=== PATIENT | female | born 1955 | race Caucasian/White ===

== ENCOUNTER → 2016-06-11 | Outpatient (CLI) | payer BC, OTHER ==
[2016-06-11 09:01] LABS: HEMATOCRIT 43.1 % (37.0-47.0); HEMOGLOBIN 14.8 g/dL (12.0-16.0); MEAN CORPUSCULAR HEMOGLOBIN 31.1 PG (27-31); MEAN CORPUSCULAR HGB CONC 34.3 g/dL (33-37); MEAN PLATELET VOLUME 10.9 FL (7.4-12.2); RDW COEFFICIENT OF VARIATION 13.6 % (11.5-14.5); RED BLOOD COUNT 4.76 10^6/uL (4.20-5.40); WHITE BLOOD COUNT 5.91 10^3/uL (4.8-10.8)
[2016-06-11 09:39] LABS: ASPARTATE AMINO TRANSFERASE 38 IU/L (8-39); BILIRUBIN,TOTAL 0.6 mg/dL (0.3-1.2); BLOOD UREA NITROGEN 20 mg/dL (7-22); BUN/CREATININE RATIO 28.57 (6-20); CALCIUM 9.7 mg/dL (8.7-10.7); CHLORIDE 103 meq/L (98-112); CREATININE 0.7 mg/dL (0.50-1.20); EST GLOMERULAR FILTRATION > 60 (>60 ml/min/1.73m(2)); GLUCOSE 92 mg/dL (78-110); HDL CHOLESTEROL 64 mg/dL (40-150); POTASSIUM 4.7 meq/L (3.8-5.2); SODIUM 139 meq/L (135-145); TOTAL PROTEIN 6.7 g/dL (6.1-8.0); TRIGLYCERIDES 172 mg/dL (44-200)
== END ==
LOC: LAB 08:37
PROVIDERS: ATTEND Obstetrics & Gynecology Gynecology
DX: M85.80 Other specified disorders of bone density and structure, unspecified site (principal); I10 Essential (primary) hypertension; E78.00 Pure hypercholesterolemia, unspecified
CPT/HCPCS: 36415; 80053; 80061; 84443; 85027

== ENCOUNTER → 2016-11-03 | Outpatient (CLI) | payer BC, OTHER ==
[2016-11-03 12:34] LABS: BASOPHILS # (AUTO) 0.06 10*3/UL; BASOPHILS % (AUTO) 1.4 % (0-1); EOSINOPHILS # (AUTO) 0.13 10*3/UL; HEMATOCRIT 43.8 % (37.0-47.0); HEMOGLOBIN 15.1 g/dL (12.0-16.0); LYMPHOCYTES # (AUTO) 1.03 10*3/uL; MEAN CORPUSCULAR HEMOGLOBIN 31.1 PG (27-31); MEAN CORPUSCULAR HGB CONC 34.5 g/dL (33-37); MEAN CORPUSCULAR VOLUME 90.1 FL (81-99); MEAN PLATELET VOLUME 11.8 FL (7.4-12.2); MONOCYTES # (AUTO) 0.31 10*3/UL (0.3-0.8); NEUTROPHILS # (AUTO) 2.87 10*3/UL; NEUTROPHILS % (AUTO) 65.2 % (50-80); RED BLOOD COUNT 4.86 10^6/uL (4.20-5.40)
[2016-11-03 12:37] LABS: PLATELET MORPHOLOGY COMMENT NORMAL MORPHOLOGY (NORM); RBC MORPHOLOGY COMMENT NORMAL MORPHOLOGY (NORM); WBC MORPHOLOGY COMMENT NORMAL MORPHOLOGY (NORM)
[2016-11-03 12:52] LABS: BLOOD UREA NITROGEN 22 mg/dL (7-22); BUN/CREATININE RATIO 31.42 (6-20); CALCIUM 9.1 mg/dL (8.7-10.7); EST GLOMERULAR FILTRATION > 60 (>60 ml/min/1.73m(2)); SERUM ALBUMIN 4.1 g/dL (3.5-4.8); SERUM CHOLESTEROL 172 mg/dL (120-200)
[2016-11-03 13:32] LABS: CHOL/HDL RATIO 1.89 RATIO (0-4.0); HDL CHOLESTEROL 91 mg/dL (40-150)
[2016-11-03 14:06] LABS: FREE T4 (FREE THYROXINE) 1.13 ng/dL (0.93-1.71)
== END ==
LOC: MOB LAB 10:24
PROVIDERS: ATTEND Family Medicine
DX: R10.13 Epigastric pain (principal); I10 Essential (primary) hypertension; E78.5 Hyperlipidemia, unspecified; I25.10 Atherosclerotic heart disease of native coronary artery without angina pectoris; K62.5 Hemorrhage of anus and rectum; R63.4 Abnormal weight loss; F32.9 Major depressive disorder, single episode, unspecified; F17.200 Nicotine dependence, unspecified, uncomplicated
CPT/HCPCS: 36415; 80053; 80061; 84439; 84443; 85025

== ENCOUNTER → 2016-11-17 | Outpatient (CLI) | payer BC, OTHER ==
--- NOTE | 2016-11-17 11:34 | DI ---
CT ABDOMEN SCAN WITH IV CONTRAST, 11/17/2016 8:33 AM : Clinical History: Central abdominal pain. Previous Exam: None at this facility. Scans are performed from the lower lung bases through the liver and kidneys with IV contrast. 80 ml o f Isovue 300 was injected IV. Low density oral barium contrast (Volumen - low density CT enterography oral contrast) was administered for all phases of the exam. The lung bases are clear. There is an irregularly-shaped low-density lesion in the right lobe of the liver medially measuring approximately 20 mm in diameter with the vessels along the perimeter of the lesion. This has the appearance of a cavernous hemangioma. Liver ultrasound is recommended to verify that this does represent a cavernous hemangioma. The gallbladder is grossly normal. There is no abnor mality of the spleen, pancreas, and adrenal glands. Both kidneys are normal in size, shape, position and contour. There is no hydronephrosis or hydroureter. No renal or ureteral calculi are present. The re are no abnormal retrocrural or periaortic nodes. No ascites is present. The aorta is normal in jamie iber. The SMA and celiac axis and LUIS ARMANDO are patent. READIN. The liver has a 20 mm low-density lesion with vascularity at the perimeter. This most likely repr esents a benign cavernous hemangioma. Liver ultrasound is recommended to verify that it represents a hemangioma. 2. The remainder of the exam is normal. CT PELVIS SCAN WITH IV CONTRAST, 11/17/2016 8:33 AM: Clinical History: See above. Previous Exam: None at this facility. Scans are performed from just superior to the umbilicus to the symphysis pubis with IV contrast. This is the same bolus of contrast used for the CT scans of the abdomen. Scans through the lower abdomen and pelvis show no masses or abnormal fluid collections. There is no adenopathy. The appendix is not identified with certainty but there is no inflammatory mass either in the cecum or in the right lower quadrant. The small bowel, terminal ileum, and ileocecal valve are n ormal. The colon is also normal. There are no hernias. READING: Normal CT scan of the pelvis.
== END ==
LOC: CT 08:29
PROVIDERS: ATTEND Surgery
DX: R10.84 Generalized abdominal pain (principal); D18.09 Hemangioma of other sites
CPT/HCPCS: 74177

== ENCOUNTER → 2016-11-24 | Outpatient (CLI) | payer BC, OTHER ==
--- NOTE | 2016-11-24 08:51 | DI ---
GALLBLADDER AND LIVER ULTRASOUND, 11/24/2016 6:51 AM: Clinical History: Liver cyst. The lesion was identified in the liver from a CT scan of the abdomen fr om 11/17/2016. Previous Exam: None at this facility. Technique: Scans are performed through the right upper quadrant in multiple projections. The patient was rolled from side to side and the gallbladder was balloted with the probe to facilitate visualizat ion of small gallstones. The gallbladder is well distended and has a normal wall thickness. There are no gallstones. The commo n bile duct measures 4 mm. The pancreas is visualized from the head to the possible body and is walter l. The liver is normal in size and overall appearance. Toward the dome of the right lobe of the liver is an echogenic lesion with vessels around the perimeter consistent with a benign cavernous hemangio ma. The lesion measures approximately 25 x 25 x 35 mm. The remainder of the liver is normal. The righ t kidney, IVC, and aorta are normal. Readin. Ultrasound confirms that the lesion seen on the recent CT scan of the abdomen with IV contrast re presents a benign cavernous hemangioma measuring roughly 25 x 25 x 35 mm toward the dome of the right lobe of the liver. No other liver abnormality is noted. 2. The gallbladder, right kidney, IVC, aorta, and the limited views of the pancreas are normal.
== END ==
LOC: US 07:50
PROVIDERS: ATTEND Surgery
DX: K76.89 Other specified diseases of liver (principal); D18.09 Hemangioma of other sites
CPT/HCPCS: 76705